=== PATIENT | female | born 1960 | race African-American/Black ===

== ENCOUNTER 2020-05-18 10:33 | Day surgery (SDC) | payer OTHER ==
[2020-05-17 12:47] VITALS: BMI 34.2
[2020-05-18] MEDS ORDERED: LIDOCAINE HCL/PF 2% SDV 5ML VIAL ONE (11:18)
[2020-05-18] MEDS ORDERED: PROPOFOL 20 ML ONE ×2 (11:18)
[2020-05-18 12:50] VITALS: TEMP 97.8
[2020-05-18 13:12] VITALS: BP 118/65; PULSE 82
== END 2020-05-18 13:13 | disposition home or self-care (01) ==
LOC: FASU-ENDO 10:33
PROVIDERS: ATTEND Internal Medicine Gastroenterology
PROC: 0DBN8ZX Excision of Sigmoid Colon, Via Natural or Artificial Opening Endoscopic, Diagnostic (ICD-10-PCS; principal; 2020-05-18 12:04)
DX: Z09 Encounter for follow-up examination after completed treatment for conditions other than malignant neoplasm (principal); Z86.010 Personal history of colon polyps; D12.5 Benign neoplasm of sigmoid colon; K64.1 Second degree hemorrhoids
CPT/HCPCS: 88305-TC